=== PATIENT | female | born 1965 | race Caucasian/White ===

== ENCOUNTER 2023-09-13 11:33 | Emergency (ER) | payer BC, MEDICAID, OTHER ==
[~2023-09-13] VITALS: Ht 152.4 cm; Wt 70.3 kg
[2023-09-13 12:51] VITALS: BP 152/78; PULSE 78; RESP 18; O2SAT 98
== END 2023-09-13 12:52 | disposition home or self-care (01) ==
LOC: EDH 11:33
DX: S92.351A Displaced fracture of fifth metatarsal bone, right foot, initial encounter for closed fracture (principal); E11.9 Type 2 diabetes mellitus without complications; Z98.890 Other specified postprocedural states; X50.1XXA Overexertion from prolonged static or awkward postures, initial encounter; Y93.89 Activity, other specified; Y92.89 Other specified places as the place of occurrence of the external cause; Y99.8 Other external cause status
CPT/HCPCS: 73630